=== PATIENT | female | born 1995 | race Two or more races ===

== ENCOUNTER 2017-09-10 20:37 | Emergency (ER) | payer BC, OTHER ==
[~2017-09-10] VITALS: Ht 149.9 cm; Wt 54.4 kg
--- NOTE | 2017-09-10 20:59 | NUR ---
PT IN BED. PT'S FRIEND AT BEDSIDE. PT COMPLAINS OF EPIGASTRIC PAIN X 10 MINS. PT DENIES NAUSEA, VOMITING AND/OR DIARRHEA.
[2017-09-10] MEDS ORDERED: DICYCLOMINE HCL 10 MG/5 ML UDC LIQ PO ONE (21:00)
[2017-09-10] MEDS ORDERED: MAG HYDROX/AL HYDROX/SIMETH 30 ML LIQUID UDC PO ONE (21:00)
[2017-09-10] MEDS ORDERED: LIDOCAINE VISCUS 2% 15 ML UDC MM ONE (21:00)
[2017-09-10] MEDS ORDERED: MAG HYDROX/AL HYDROX/SIMETH 30 ML LIQUID UDC ONE (21:06)
[2017-09-10] MEDS ORDERED: LIDOCAINE VISCUS 2% 15 ML UDC ONE (21:06)
[2017-09-10] MEDS ORDERED: DICYCLOMINE HCL 10 MG/5 ML UDC LIQ ONE (21:07)
[2017-09-10 21:12] LABS: BASOPHILS % (AUTO) 0.3 % (0.0-2.0); EOSINOPHILS # (AUTO) 0.1 K/uL (0.0-0.7); EOSINOPHILS % (AUTO) 0.8 % (0.0-7.0); HEMATOCRIT 35.2 % (31.2-41.9); HEMOGLOBIN 11.9 g/dL (10.9-14.3); LYMPHOCYTES # (AUTO) 2.6 K/uL (20.0-40.0); LYMPHOCYTES % (AUTO) 32.5 % (20.5-74.5); MEAN CORPUSCULAR HEMOGLOBIN 30.4 uug (24.7-32.8); MEAN CORPUSCULAR HGB CONC 34 g/dL (32.3-35.6); MEAN CORPUSCULAR VOLUME 90.4 fL (75.5-95.3); MONOCYTES # (AUTO) 0.6 K/uL (2.0-10.0); MONOCYTES % (AUTO) 7.1 % (0-11); NEUTROPHILS # (AUTO) 4.7 K/uL (1.8-8.9); NEUTROPHILS % (AUTO) 59.3 % (31.5-64.5); PLATELET COUNT (AUTO) 213 K/uL (179-408); WHITE BLOOD COUNT (AUTO) 7.9 K/uL (3.8-11.8)
[2017-09-10 21:21] LABS: CREATININE 0.6 mg/dL (0.6-1.3)
--- NOTE | 2017-09-10 21:21 | NUR ---
US AT BEDSIDE.
[2017-09-10 21:26] LABS: BILIRUBIN,DIRECT 0.1 mg/dL (0.0-0.2); BILIRUBIN,TOTAL 0.2 mg/dL (0.2-1.0); TOTAL PROTEIN, SERUM 6.8 g/dL (6.4-8.2)
[2017-09-10] MEDS ORDERED: KETOROLAC TROMETHAMINE 60 MG INJ IM ONE ×2 (21:40→21:45)
--- NOTE | 2017-09-10 22:18 | NUR ---
PT IN BED. PT'S FRIEND AT BEDSIDE. PT QUIETLY WATCHING TV. GI COCKTAIL WAS WELL TOLERATED. PT REPORTING REPORTING REDUCED EPIGASTRIC PAIN AFTER TORADOL INJ.
--- NOTE | 2017-09-10 22:45 | NUR ---
Patient discharged to home in stable conditon. Written and verbal after care instructions given. Patient verbalizes understanding of instructions. Patient able to ambulate unassisted with steady gait. Patient left with all personal belongings.
[2017-09-10 23:04] VITALS: BP 98/62
== END 2017-09-10 22:45 | disposition home or self-care (01) ==
LOC: ER 20:38
DX: K80.20 Calculus of gallbladder without cholecystitis without obstruction (principal)
CPT/HCPCS: 36415; 83690; 84703; 85025; A4663; J1885

== ENCOUNTER 2019-02-12 22:36 | Emergency (ER) | payer BC, OTHER ==
[~2019-02-12] VITALS: Ht 152.4 cm; Wt 54.4 kg
[2019-02-12 23:39] LABS: *BILIRUBIN,URIN NEGATIVE (NEGATIVE); *BLOOD, URINE 1+ (NEGATIVE); *CLARITY,URINE CLOUDY (CLEAR); *COLOR,URINE YELLOW (YELLOW); *KETONES,URINE 1+ (NEGATIVE); *UROBILINOGEN,URINE 0.2 E.U./dl (NORMAL); LEUKOCYTE ESTERASE ,URINE 1+ (NEGATIVE); NITRITE, URINE NEGATIVE (NEGATIVE); PH,URINE 5.5 (5.0-8.0); UGLUCOSE NEGATIVE (NEGATIVE)
[2019-02-12 23:46] LABS: *URINE HCG, QUAL NEGATIVE (NEGATIVE); BACTERIA,URINE NONE SEEN /HPF (NONE SEEN); RBC,URINE TNTC /HPF (0-3); SQUAMOUS EPITHELIAL CELL,UR MODERATE /HPF (NONE SEEN)
[2019-02-13] MEDS ORDERED: PHENAZOPYRIDINE HCL 100 MG TABLET PO ONE
[2019-02-13] MEDS ORDERED: CEphaleXIN 250 MG CAPSULE PO ONE
--- NOTE | 2019-02-13 00:07 | NUR ---
Patient discharged to home in stable conditon. Written and verbal after care instructions given. Patient verbalizes understanding of instructions. Ambulated from [place] with stable gait. All belongings with patient.
[2019-02-13 00:08] VITALS: BP 121/80
[2019-02-13] MEDS ORDERED: CEphaleXIN 250 MG CAPSULE ONE (00:09)
[2019-02-13] MEDS ORDERED: PHENAZOPYRIDINE HCL 100 MG TABLET ONE (00:10)
== END 2019-02-13 00:09 | disposition home or self-care (01) ==
LOC: ER 22:36
DX: N93.9 Abnormal uterine and vaginal bleeding, unspecified (principal); R30.0 Dysuria
CPT/HCPCS: 84703; 87086; A4663